=== PATIENT | male | born 1960 | race Caucasian/White ===

== ENCOUNTER 2021-05-04 19:45 | Observation (INO) | payer OTHER ==
[~2021-05-04] VITALS: Ht 188 cm; Wt 99.2 kg
[2021-05-04] MEDS ORDERED: OLMESARTAN MEDO20 MG PO (21:16)
[2021-05-04] MEDS ORDERED: OMEPRAZOLE20 MG PO (21:21)
--- NOTE | 2021-05-05 00:30 | NUR ---
PT HERE FROM ER, UP TO VOID 200mls, VITALS DONE AT THIS TIME, BEDSIDE TABLE SET UP, CALL LIGHT IN PLACE, NO FURTHER NEEDS AT THIS TIME
--- NOTE | 2021-05-05 01:22 | NUR ---
Patient in bed comfortable and ready for bed. Admit assessment completed. Patient denies pain at this time. Oriented to room and call light. Personal supplies and call light within reach.
--- NOTE | 2021-05-05 04:15 | NUR ---
Patient in bed sleeping, respirations even and non labored. No notable distress. Personal supplies and call light within reach.
--- NOTE | 2021-05-05 08:00 | NUR ---
RECEIVED REPORT AT 0700, PT WAS AWAKE IN BED. ONLY THING NOTED WITH MORNING ASSESSMENT WAS RUQ ABD PAIN. ASSESSMENT OTHERWISE WAS WDL. PT IS READY FOR OR AT 1000.
--- NOTE | 2021-05-05 10:30 | NUR ---
PT LEFT FOR OR AT 1030.
--- NOTE | 2021-05-05 10:52 | NUR ---
THIS MORNING BROUGHT PATIENT THE SURGICAL WIPE DOWN WIPES ALSO INSTRUCTIONS ON HOW TO DO IT. GOT HIM A CLEAN GOWN. PUT HIS SCDS BACK ON.
--- NOTE | 2021-05-05 14:17 | NUR ---
05/05/21 1417 Magdalena Lombardo 1412- PT ARRIVES TO PACU NONAROUSABLE TO NOXIOUS STIMULI WITH AN OPA IN PLACE. RESP EVEN AND UNLABORED. OXYGEN SAT HIGH 90'S ON 10L VIA MASK.
--- NOTE | 2021-05-05 16:00 | NUR ---
UPON ARRIVAL FROM PACU PT APPEARED TO HAVE TROUBLE WITH HIS AIRWAY EVEN THOUGH HIS O2 SATS WERE 95% ON 2L O2 NC. RR WERE AROUND 12, HR IN THE 50'S, OTHER V/S WERE WDL. PT IS VERY LETHARGIC SINCE ARRIVAL. 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 LAP SITES X5 HAVE SCAN AMOUNT OF SEROUS DRAINAGE PRESENT, STERI-STRIPS ARE INTACT. IVON-DRAIN SITE HAS A SMALL AMOUNT OF SEROUS SHADOWING PRESENT AROUND THE INSERTION SITE. IVON-DRAIN OUTPUT IS SEROUS IN NATURE AND MINIMAL SO FAR. LOBES ARE CLEAR WITH THE LOWER LOBES DIMINISHED, LUQ AND RUQ SOUNDS ARE ABSENT, OTHER QUADRANT SOUNDS ARE PRESENT, ABD IS FIRM, MODERATLY DISTENDED. SCLERA AND SKIN ARE JAUNDICE. WILL CONTINUE TO MONITOR.
--- NOTE | 2021-05-05 16:20 | NUR ---
Pt lives in [place] in a 1 story home without steps with his Shirley. Pt is tired following surgery and request I ask questions. Pt is slightly jaundiced. Per he is active and does not use any DME. He drives and they are financially sound. Uses [employer] [facility] [facility] in [place]. His Dr. Recently moved and he has not been reassigned. He sees whichever Dr. is available. denies needs for dc and plan on taking pt home, she will be off work for 3 days and will stay with him.
--- NOTE | 2021-05-05 16:38 | NUR ---
JOSELINE MELLO CAME BY TO EVALUATE PT AIRWAY. NOTHING INHIBITING PT AIRWAY WAS FOUND. PT AT THIS TIME IS MORE ALERT AND SITTING ON SIDE OF BED TRYING TO URINATE WITH HIS AT BEDSIDE.
--- NOTE | 2021-05-05 17:37 | NUR ---
PT NOW ON ROOM AIR, WILL CONTINUE TO MONITOR.
--- NOTE | 2021-05-05 18:38 | NUR ---
WHEN PT ARRIVED ON MS AT 1530 HE WAS VERY LETHARGIC AND APPEARED TO HAVE AN ISSUE WITH HIS AIRWAY. JOSELINE MELLO DID COME UP AND ASSESS HIS AIRWAY AND NOTHING COMPROMISING PT AIRWAY WAS FOUND. PT DID HAVE AN IRRITATED AND SWOLLEN UVULA. HR AT FIRST WAS IN THE 50'S, ALL OTHER V/S HAVE BEEN WDL. PT AT THIS TIME IS ON ROOM AIR AND ALL V/S ARE WDL, PT VOIDED 650MLS SO FAR, PT IS TOLERATING PO INTAKE WELL. IVON-DRAIN OUTPUT IS VERY MINIMAL SO FAR, LAP SITES X5 HAVE SCANT AMOUNTS OF SEROUS DRAINAGE PRESENT. PAIN NOW IS WELL CONTROLLED WITH PO PERCOCET. PT NOW IS ALSO ALERT AND ORIENTED.
--- NOTE | 2021-05-05 19:00 | NUR ---
SHIFT REPORT RECIEVED FROM [facility] TAWNY ORDONEZ AT BEDSIDE, pt AWAKE AND RESTING IN BED. [address] WITH STERI STRIPS, SCANT SEROSANGUINEOUS SHADOWING, WILL MONITOR. IVON DRAIN TO RIGHT LOWER QUADRANT, WILL MONITOR OUTPUT. CPOX IN PLACE, SPO2 AND HR WNL. pt ON RA, RR EVEN AND UNLABORED. NO DSITRESS NOTED. CALL LIGHT IN REACH.
--- NOTE | 2021-05-05 19:45 | NUR ---
IN TO CHECK CPOX, ALARMING 'SPD', AJDUSTED SETTING, NO FURTHER NEEDS AT THIS TIME
--- NOTE | 2021-05-05 20:59 | EKG ---
[facility] [address] [facility] [place], [place] [address] Signed Normal sinus rhythm Normal ECG No previous ECGs available Confirmed by JOSE KUO DO ([id number]) on 05/05/2021 8:59:54 PM Electronically Signed By: JOSE KUO DO 05/05/212058 PATIENT NAME: LOLI BELL Electrocardiogram DATE OF : 60 PHYSICIAN: JOSE KUO DO REPORT #: [id number] REPORT IS CONFIDENTIAL AND NOT TO BE RELEASED WITHOUT AUTHORIZATION
--- NOTE | 2021-05-05 21:45 | NUR ---
ASSESSMENT COMPLETE, SCHEDULED MEDS GIVEN (SEE EMAR). pt REPORTS TOLERABLE 4/10 PAIN, WILL MONITOR. pt CURRENTLY DENIES NEED FOR PAIN MEDS AT THIS TIME. IN ROOM. NO CHANGE TO LAP SITES X5 OR IVON DRAIN. DR VERNON UPDATED ON pt AMBULATING IN HALLWAY AND IVON OUTPUT THUS FAR THIS SHIFT. CLARIFIED WITH DR VERNON REGARDING 1600 CMP, PER DR VERNON OKAY TO DISCONTINUE AND NOT COLLECT. WILL REVIEW AM LABS. NO FURTHER NEEDS, CALL LIGHT IN REACH.
--- NOTE | 2021-05-06 00:06 | NUR ---
CALL LIGHT ANSWERED, pt REPORTS 7/10 ABD PAIN, SEE EMAR. PRN PAIN MEDICATION GIVEN, SEE EMAR. SNAKC ALSO PROVIDED, NO FURTHER NEEDS. CALL LIGHT IN REACH.
--- NOTE | 2021-05-06 01:55 | NUR ---
IN TO GET VITALS, ICE WATER REFILLED, NO FURTHER NEEDS
--- NOTE | 2021-05-06 02:31 | NUR ---
ASSESSMENT COMPLETE, NO NEW CHANGES OR CONCERNS. NEW BAG IV FLUIDS HUNG AND INFUSING PER MD ORDERS, IV SITE WNL. pt REPORTS TOLERABLE 3-4/10 PAIN, NO CHANGE TO LAP SITES OR IVON DRAIN. CALL LIGHT IN REACH, IN ROOM.
--- NOTE | 2021-05-06 02:35 | NUR ---
CPOX ALARMING, PT WAS MOVING FINGER, HR NOT DETECTED, RESOLVED ISSUE, NO FURTHER NEEDS
--- NOTE | 2021-05-06 03:25 | NUR ---
CPOX ALARMING, PT ATTEMPTING TO REST AND HR SLOWS, CAUSES CPOX TO ALARM , RN IS AWARE, NO FURTHER NEEDS
--- NOTE | 2021-05-06 05:54 | NUR ---
SCHEDULED IV ABX GIVEN, SEE EMAR. IV SITE WNL. PRN MOTRIN ALSO GIVEN FOR 6/10 PAIN. IN ROOM. CPOX IN PLACE, SPO2 ON RA, 97%, HR 55. NO FURTHER NEEDS, CALL LIGHT IN REACH.
--- NOTE | 2021-05-06 06:48 | NUR ---
DR VERNON CALLED AND PROVIDED WITH TELEPHONE UPDATE ON pt, MD UPDATED ON AM LAB RESULTS AND PIERCE HR THROUGHOUT THE NIGHT OF LOW 40'S WHEN SLEEPING. pt AWOKE TO VOICE AND IS FULLY A/OX4. AMBULATED THIS MORNING WITH . NO NEW ORDERS AT THIS TIME.
--- NOTE | 2021-05-06 09:10 | NUR ---
REPORT RECEIVED FROM NIGHT RN AND PT. CARE RESUMED. PT. IS ALERT AND ORIENTED. PRESENT. HE REPORTS 8/10 PAIN IN LOWER ABDOMEN THAT IS ACHING. ADMIN. PO PERCOCET. IVON DRAIN IS PATENT. TUBING STRIPPED AND EMPTIED. LAP STERI STRIPS INTACT WITH DRIED DRAINAGE. LUNGS CLEAR THROUGHOUT AND BOWEL TONES ACTIVE. PT. DENIES NAUSEA AND EATING WELL. LEFT RESTING WITH CALL LIGHT IN REACH.
[2021-05-06] MEDS ORDERED: ACETAMINOPHEN500 MG PO (10:01)
[2021-05-06] MEDS ORDERED: IBUPROFEN600 MG PO (10:01)
[2021-05-06] MEDS ORDERED: OXYCODON-ACETA1 EAC2 PO (10:01)
--- NOTE | 2021-05-06 10:35 | HP ---
[facility] [address] [place], [place] [address] Signed ADMISSION DATE: 05/04/2021 REASON FOR ADMISSION: Acute cholecystitis with sludge and elevated liver enzymes. HISTORY OF PRESENT ILLNESS: This 61-year-old white man, who has had recurrent bouts of right upper abdominal pain and epigastric pain. He went on a low-carbohydrate diet relatively recently losing approximately 17 pounds by intention. He has had a several years worth of episodic right upper abdominal and right subscapular pain, particularly following fatty food intake. The patient has been previously on a relatively high carbohydrate diet, drinking at least 17 regular Pepsi's a day. He transitioned to sweet tea and ultimately to simply to water. This facilitated as weight loss. Yesterday, he for the first time had some full fat yogurt, which caused recurrent symptoms of right subcostal and epigastric pain with radiation into the subscapular area. He has actually been having significant symptoms for the past two weeks. 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 He has multiple family members, who are involved in health care including medical assisting and so forth. He presented to the emergency room yesterday, was evaluated by Dr. Plascencia. Evaluation included lab studies, which showed markedly elevated liver enzymes including bilirubin that was 6.1, elevated alkaline phosphatase to 454, AST of 193, and ALT of 250. An ultrasound was performed, which did not show what appeared to be acute cholecystitis, particularly but did show sludge in the neck of the gallbladder. There was no sign of stone, no sign of intrahepatic ductal dilatation. I was called and reviewed the situation with Dr. Plascencia and recommended a CT scan to be obtained to assess for a neoplasm of the head of the pancreas, there is no such finding. The patient had marked tenderness and pain upon presentation, but since hospitalization late last night with IV antibiotics and IV fluids, his symptoms have much improved. PAST MEDICAL AND SURGICAL HISTORY: Does include left knee replacement, also history of left hydrocelectomy. The patient had a complex laceration of his right volar forearm resulting in what sounds like ulnar artery ligation and muscle wasting of his right hand, the patient is naturally left-hand dominant. The patient is not known to have had COVID disease (though he thinks he had it before Electronically Signed By: RIAZ VERNON MD 05/06/21 1035 PATIENT NAME: LOLI BELL HISTORY AND PHYSICAL DATE OF : 60 REPORT #: [id number] PHYSICIAN: RIAZ VERNON MD PCP: NO PRIMARY CARE PHYSICIAN REPORT IS CONFIDENTIAL AND NOT TO BE RELEASED WITHOUT AUTHORIZATION [facility] [address] [place], [place] [address] Signed anyone else). He has never been tested for. He refuses the vaccine. His lab studies show that he is COVID negative on admission. SOCIAL HISTORY: He is . Lives in [place], [place]. 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 He has grown children. REVIEW OF SYSTEMS: He denies any shortness of breath or chest pain. He has had no dysphagia or dysuria. Denies any hematemesis or blood per rectum. PHYSICAL EXAMINATION: GENERAL: Pleasant white man, who does not look to be in severe distress at this time. VITAL SIGNS: Temperature is 97.6, pulse is 60, blood pressure 115/67, and O2 saturation on room air is 97%. NECK: Shows no thyromegaly or cervical adenopathy. Trachea is midline. Mucous membranes are moist. CHEST: Clear. HEART: Regular without murmur. ABDOMEN: Nondistended. There is no ascites. He has only mild right subcostal tenderness. There is no mass. EXTREMITIES: Show no clubbing, cyanosis, or edema. LABORATORY DATA: Lab studies from admission at 2110 on 04 May, showed white count of 17.3, hematocrit 46.9, and platelets 340,000. Chem profile showed sodium of 131, potassium 4.9, creatinine 1.21, and glucose 112. Total bilirubin 6.1, AST 193, ALT 250, alkaline phosphatase 454, albumin 4.4, and lipase 62. Urinalysis essentially normal except for elevated nitrite and urobilinogen 4.0, white cells of 2.3 per high-power field. Serology for coronavirus is negative. I have reviewed his ultrasound and a CT scan. Findings were noted as above. ASSESSMENT AND PLAN: The patient has what appears to be a bout of recurrent biliary colic and essentially acute cholecystitis with persistent tenderness, elevated white count, and markedly elevated liver enzymes. I discussed the pathophysiology of biliary disease with him and I have recommended cholecystectomy by laparoscopic approach, possible or even probable laparoscopic common duct exploration. Discussed the particulars of all of this. He may require an open procedure. We discussed that as well. The risks of bleeding, infection, bile duct injury, need for open procedure, need for drains and possibly prolonged drainage was reviewed in detail. He understands and wished to proceed. Electronically Signed By: RIAZ VERNON MD 05/06/21 1035 PATIENT NAME: LOLI BELL HISTORY AND PHYSICAL DATE OF : 60 REPORT #: [id number] PHYSICIAN: RIAZ VERNON MD PCP: NO PRIMARY CARE PHYSICIAN REPORT IS CONFIDENTIAL AND NOT TO BE RELEASED WITHOUT AUTHORIZATION [facility] [address] [place], [place] [address] Signed We will plan to continue n.p.o. status, IV antibiotic Ancef and we will re-evaluate his liver enzymes for this morning. MD DOMINICK Zamora/MALISSAL /[id number] cc: Wes Plascencia MD Copies: WES PLASCENCIA MD ~ Electronically Signed By: RIAZ VERNON MD 05/06/21 1035 PATIENT NAME: LOLI BELL HISTORY AND PHYSICAL DATE OF : 60 REPORT #: [id number] PHYSICIAN: RIAZ VERNON MD PCP: NO PRIMARY CARE PHYSICIAN REPORT IS CONFIDENTIAL AND NOT TO BE RELEASED WITHOUT AUTHORIZATION
--- NOTE | 2021-05-06 10:35 | OR ---
[facility] [address] [place], [place] [address] Signed DATE OF OPERATION: 05/05/2021 SURGEON: Riaz Vernon MD PREOPERATIVE DIAGNOSES: Acute cholecystitis with sludge and elevated liver enzymes (bilirubin 6.6, AST 125, ALT 194, alkaline phosphatase 376). POSTOPERATIVE DIAGNOSES: Acute cholecystitis with distal common duct small stone debris with sludge. PROCEDURES: 1. Laparoscopic cholecystectomy with cholangiogram and laparoscopic common duct exploration (transcystic duct). Surgeon directed fluoroscopy. 2. Flexible choledochoscopy with clearance of common duct and completion of cholangiogram. ANESTHESIA: General endotracheal, Riaz Rolon CRNA and local 20 mL of 0.25% Marcaine with epinephrine. INDICATION: This 61-year-old white man has had recurrent bouts of right upper abdominal pain for several years actually. He has had intentional weight loss over the past several weeks with low-carbohydrate type diet. He had yogurt yesterday and had recurrence of his symptoms which have been typical of his situation for over a year, including epigastric and right subcostal pain with pain radiating to the subscapular area. He presented to the emergency room where he was evaluated by Dr. Plascencia by ultrasound, which showed significant sludge in the gallbladder. No sign of common duct dilation, but lab studies showing markedly elevated liver enzymes. His initial presentation lab showed a total bilirubin of 6.1, AST 193, ALT 215, alkaline phosphatase 454. Notably, lipase was normal. Followup labs showed the bilirubin slightly elevated more today at 6.6, but other liver enzymes decreased including AST 125, ALT 194, and alkaline phosphatase 376. He did have a CT scan following his ultrasound at my recommendation to assess there was no neoplasm of the head of the pancreas. He is admitted at this time to undergo laparoscopic cholecystectomy, possible common duct exploration. He and his understand the risks of bleeding, infection, bile duct injury, need for open procedure and other unforeseen complications and wished to proceed. Electronically Signed By: RIAZ VERNON MD 05/06/21 1035 PATIENT NAME: LOLI BELL OPERATIVE REPORT DATE OF : 60 REPORT #: [id number] PHYSICIAN: RIAZ VERNON MD PCP: NO PRIMARY CARE PHYSICIAN REPORT IS CONFIDENTIAL AND NOT TO BE RELEASED WITHOUT AUTHORIZATION [facility] [address] [place], [place] [address] Signed FINDINGS: The gallbladder was quite markedly inflamed and dense omental adhesions were noted to the undersurface. The gallbladder did require decompression due to its markedly enlarged size. Green debris bile was noted on suctioning. Ultimately, cholangiogram showed a relatively large filling defect in the distal common duct. Laparoscopic common bile duct exploration was undertaken 1st transcystic approach, ultimately clearing the duct on final completion cholangiogram. DESCRIPTION OF PROCEDURE: The patient was brought to the operating room, and given a general endotracheal anesthetic. Ancef antibiotic had been administered. Sequential compression device stockings were used. The abdomen is prepared with chlorhexidine solution after intubation and satisfactory general endotracheal anesthesia. An infraumbilical incision was made and using an open Angeles cannula technique pneumoperitoneum achieved to a level of 14 mmHg of carbon dioxide gas. Intraabdominal inspection showed no sign of ascites or carcinomatosis. The liver appeared normal. The gallbladder was completely obscured from view. Marked inflammatory changes in the omentum over the right lobe of the liver were noted. Three additional trocars were placed in usual configuration in the subxiphoid, right midclavicular, and right anterior axillary line. With two-hand dissection, the omentum was freed from the underlying gallbladder which was found to be markedly distended and inflamed. Meticulous dissection to free the omentum from the undersurface of the gallbladder went without problem. The gallbladder was so tensely distended and so forth that decompression was required. Using a laparoscopic needle trocar device, the gallbladder was decompressed. The puncture site was secured with a laparoscopic grasper allowing for elevation of the gallbladder cephalad. Using blunt dissection, the infundibulum was better identified. An additional 5 mm trocar was placed in the mid abdomen allowing for a fan retractor to retract the duodenum and omentum medially. Using an additional grasper, the infundibulum was grasped and retracted laterally and using blunt electrocautery dissection triangle of Calot was dissected free. The critical view of safety was noted identifying well the cystic duct. Clips were applied to the cystic arterial branches as necessary. Once the cystic duct was fully cleared, a clip was applied across the gallbladder cystic duct junction. A transverse choledochotomy was made in the cystic duct showing rather thick turbid bile. Using the Tomas-type cholangiocatheter, intraoperative cholangiography was undertaken. Free flow of contrast was noted into the biliary tree. The relatively longer cystic duct was noted. In the distal common duct was a relatively large appearing filling defect. It was not entirely clear initially if this could be even cleared by a transcystic duct approach given its size. Mindful of the possibility that the offending lesion may have been soft, given no clear evidence of stones on preoperative imaging. Proceeding with laparoscopic common duct exploration was deemed advisable. An epigastric trocar was placed in alignment with the cystic duct. The flexible tipped Electronically Signed By: RIAZ VERNON MD 05/06/21 1035 PATIENT NAME: LOLI BELL OPERATIVE REPORT DATE OF : 60 REPORT #: [id number] PHYSICIAN: RIAZ VERNON MD PCP: NO PRIMARY CARE PHYSICIAN REPORT IS CONFIDENTIAL AND NOT TO BE RELEASED WITHOUT AUTHORIZATION [facility] [address] [place], [place] [address] Signed wire was passed through the trocar into the cystic duct choledochotomy and under fluoroscopic control, the wire advanced into the duodenum. It was withdrawn a bit aligning it well. An ERCP balloon catheter was then passed over the wire with alignment of the radiopaque markers over the ampulla. The ampulla was dilated in the usual way under fluoroscopic control and deflated and withdrawn to the cystic duct, which was sequentially dilated as well. The flushed port of the catheter was then armed with contrast and irrigation undertaken vigorously and then cholangiography again performed. This showed haziness in the mid common bile duct, unclear if the duct had been completely cleared or not. The initial defect appeared to be absent, however. A flexible choledochoscope (actually a ureteronephroscope) was passed with extreme care down the accessory trocar site aligned with the cystic duct and past on the cystic duct and the common bile duct. Good visualization was noted. There was mucoid debris, but no sign of large stone per se. Various manipulations were undertaken allowing the choledochoscope to pass as far as possible. It did not pass into the duodenum proper however. A spiral stone basket wire snare was passed down the operating channel of the choledochoscope and passed across what clearly would be the ampulla. The basket was opened blindly, carefully withdrawn and gently closed and withdrawn, some mucoid debris to be removed. The choledochoscope was carefully withdrawn and there were no sign of other filling defect. Additional application of the scope to the common duct was undertaken showing no evidence of retained stone. Using the Tomas-type cholangiocatheter, completion cholangiography was undertaken showing free flow of contrast in the biliary tree with emptying into the duodenum and without impediment of flow or filling defect. The common duct was considered clear at this point. Catheter was removed and the cystic duct was triply clipped and divided, the gallbladder dissected free in a retrograde fashion using electrocautery. The gallbladder was placed in an endobag and extracted through the infraumbilical port site without problem, opened on the back table and found to have very foul-smelling mucoid material with multiple small gallstones that were dark. There was no sign of neoplasm. Irrigation was undertaken in the subhepatic space. A 7 mm flat Samy drain was placed in the subhepatic space and exited through right-sided trocar site. It was secured the skin with nylon suture. A Jimena-Martin device was used to approximate the fascial epigastric port as it had been enlarged initially and did have some oozing of blood at the outset of operation. Good hemostasis was noted. The additional trocars were removed and the infraumbilical fascial incision reapproximated with interrupted 0 Vicryl suture with an additional running 0 PDS suture. A 20 mL of 0.25% Marcaine with epinephrine was injected locally. The skin was then closed with interrupted 3-0 Vicryl and Steri-Strips were applied. The Electronically Signed By: IRAZ VERNON MD 05/06/21 1035 PATIENT NAME: LOLI BELL OPERATIVE REPORT DATE OF : 60 REPORT #: [id number] PHYSICIAN: RIAZ VERNON MD PCP: NO PRIMARY CARE PHYSICIAN REPORT IS CONFIDENTIAL AND NOT TO BE RELEASED WITHOUT AUTHORIZATION [address] [address] Signed patient was ultimately extubated and transferred to the recovery room in good condition having suffered no complications. Sponge, needle, and counts reported were reported as correct x3. Operation was prolonged, complicated and difficult and accomplished safely. MD DOMINICK Zamora/HELENA /[id number] cc: Wes Plascencia MD Copies: WES PLASCENCIA MD ~ Electronically Signed By: RIAZ VERNON MD 05/06/21 1035 PATIENT NAME: RAYLOLI OPERATIVE REPORT DATE OF : 60 REPORT #: [id number] PHYSICIAN: RIAZ VERNON MD PCP: NO PRIMARY CARE PHYSICIAN REPORT IS CONFIDENTIAL AND NOT TO BE RELEASED WITHOUT AUTHORIZATION
--- NOTE | 2021-05-06 12:00 | NUR ---
ALL DISCHARGE INSTRUCTIONS REVIEWED AND QUESTIONS ANSWERED. PT. DENIES PAIN AND VITALS STABLE. IV REMOVED WITH CATH INTACT. PT. 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
--- NOTE | 2021-05-06 16:00 | PATH ---
[facility] [address] [place], [place] [address] Signed SPECIMEN(S): A GALLBLADDER AND STONES SPECIMEN SOURCE: A. GALLBLADDER AND STONES CLINICAL HISTORY: Acute cholecystitis and cholelithiasis. FINAL PATHOLOGIC DIAGNOSIS: Gallbladder, cholecystectomy: - Acute on chronic cholecystitis. - Cholelithiasis. NAL:bg:C2NR MICROSCOPIC EXAMINATION: Histologic sections of all submitted blocks are examined by light microscopy. These findings, together with the gross examination, support the pathologic diagnosis. GROSS DESCRIPTION: The specimen, labeled "DP, A," and designated on the requisition "gallbladder and stones," is received in formalin and consists of Specimen: Previously opened gallbladder. Dimensions: 8.0 x 4.0 x 1.3 cm. Serosa: [place] and smooth. Cystic Duct: unobstructed. Calculi: Multiple black-brown calculi (0.1-0.4 cm in greatest dimension, and 2.0 x 1.0 x 0.5 cm in aggregate). Mucosa: [place] and velvety. Wall thickness: 0.7 cm. Lymph node: No pericystic lymph nodes are grossly identified. Additional: None. Card Hanger sections are submitted in cassette (A1). AC (under the direct supervision of a pathologist) The Gross Description was prepared using a voice recognition system. The report was reviewed for accuracy; however, sound-alike word errors, addition and/or deletions may occur. If there is any question about this report, please contact Client Services. PERFORMING LABORATORY: [facility] PATIENT NAME: LOLI BELL PATHOLOGY DATE OF : 60 REPORT #: [id number] PHYSICIAN: JENYTE PATHOLOGY PCP: NO PRIMARY CARE PHYSICIAN REPORT IS CONFIDENTIAL AND NOT TO BE RELEASED WITHOUT AUTHORIZATION [facility] [address] [facility] [place], [place] [address] Signed [facility] [address] [place], [place] [address] (CLIA# [id number]). Diagnostician: Yesy Esquivel MD Pathologist Electronically Signed 05/06/2021 Copies: ~ PATIENT NAME: LOLI BELL PATHOLOGY DATE OF : 60 REPORT #: [id number] PHYSICIAN: JENYTE PATHOLOGY PCP: NO PRIMARY CARE PHYSICIAN REPORT IS CONFIDENTIAL AND NOT TO BE RELEASED WITHOUT AUTHORIZATION
--- NOTE | 2021-05-07 11:43 | DS ---
[facility] [place] [facility] [address] [place], [place] [address] Signed ADMISSION DATE: 05/04/2021 DISCHARGE DATE: 05/06/2021 REASON FOR ADMISSION: This 61-year-old white man has no primary provider, but presented to the emergency room with severe bouts of recurrent epigastric and right subcostal pain. He has had a 17-pound weight loss by intention on a low-carbohydrate diet. He has had several years of episodic symptoms highly suggestive of biliary disease. He was evaluated in the emergency room in [place], though he lives in [place], [place] and was seen by Dr. Plascencia with findings highly suggestive of acute cholecystitis. Notably lab studies were obtained, which showed an elevated white count and elevated liver enzymes including alkaline phosphatase of 454, AST of 193, ALT of 250, and bilirubin of 6.1. An ultrasound was performed, which showed a considerable amount of sludge in the neck of the gallbladder, the common bile duct was not dilated. I was consulted in the late night about this and recommend a CT scan in addition will be performed to assess for neoplasm of the pancreatic head. The CT performed showed no such finding. He was admitted for further evaluation and care for acute cholecystitis, possible common duct obstruction. His past medical history does include left knee replacement and history of left hydrocelectomy. He has had history of complex right volar forearm laceration. The patient has not undergone COVID vaccination. PERTINENT PHYSICAL EXAM: GENERAL: Pleasant white man, who does not look systemically toxic. HEENT: He has mild icterus. Trachea is midline. He has some post herpetic scabs in the right lower lip area... no obvious vescicles. CHEST: Clear. HEART: Regular without murmur. ABDOMEN: Nondistended. He had tenderness in right subcostal area. There is no mass. He had no ascites. There is a right lower abdominal scar EXTREMITIES: Show no clubbing, cyanosis, or edema. LAB STUDIES: Are as previously noted. Additionally, lipase was noted to be 62 (normal), white count was 17.3, hematocrit 46.9, and platelets 340,000. HOSPITAL COURSE: The patient was admitted under my direction and started on Ancef antibiotic IV fluids and made to be n.p.o. His clinical examination within 12 hours showed improvement in his complaints of pain, but persistent tenderness in right subcostal area. On May 05, 2021, he underwent laparoscopic cholecystectomy as well as cholangiogram. Electronically Signed By: RIAZ VERNON MD 05/07/21 1143 PATIENT NAME: LOLI BELL DISCHARGE SUMMARY DATE OF : 60 REPORT #: [id number] PHYSICIAN: RIAZ VERNON MD PCP: NO PRIMARY CARE PHYSICIAN REPORT IS CONFIDENTIAL AND NOT TO BE RELEASED WITHOUT AUTHORIZATION [facility] [address] [place] [id number] Signed Cholangiogram showed a distinct filling defect in the distal common bile duct. On that basis, laparoscopic common duct exploration was undertaken including flexible choledochoscopy. Most of the material within the biliary tree had been flushed through with antegrade flushing following dilation of the ampulla and biliary tree. Endoscopic evaluation showed no large stone, only bits of debris and mucoid material. The gallbladder itself showed marked inflammation particularly foul smelling bile and sludge and small stones. A drain was placed at time of operation. By the following day, he was markedly improved. His liver enzymes were improved by twice including a bilirubin down from 6.6 at its maximum to 3.6 today following operation. AST was 60 down from 125, ALT 126 down from 194, alkaline phosphatase down from 376 to 319. He had clinical resolution of his symptoms entirely and clinical icterus was improved as well. Drain showed no sign of bile leak and was removed. The patient is discharged home anticipating avoidance of lifting more than 20 pounds for the next two weeks. DISCHARGE MEDICATIONS: Include: 1. Ibuprofen 600 mg p.o. q.6 hours as needed for pain #30. 2. Percocet 7.5/325 1-2 p.o. q.6 hours as needed for pain #6. 3. Tylenol 500 mg two tablets p.o. q.6 hours as needed for pain #60. He will continue with his usual medications these include olmesartan medoxomil 20 mg b.i.d. and omeprazole 20 mg p.o. daily. FOLLOWUP PLANS: He will call on Sunday to organize an appointment for four weeks from now. If he is doing well and feels that his lengthy trip would be too onerous then phone followup will be reasonable. It is recalled that he [place] 65 miles away. DISCHARGE DIAGNOSES: 1. Acute calculus cholecystitis with choledocholithiasis with obstruction. 2. Status post laparoscopic cholecystectomy with laparoscopic common duct exploration and clearance of duct including a flexible choledochoscopy on May 05, 2021. 3. History of right volar arm injury. 4. Clinical gastroesophageal reflux. 5. Hypertension. 6. History of left hydrocele repair. 7. right lower abdominal scar Electronically Signed By: RIAZ VERNON MD 05/07/21 1143 PATIENT NAME: LOLI BELL DISCHARGE SUMMARY DATE OF : 60 REPORT #: [id number] PHYSICIAN: RIAZ VERNON MD PCP: NO PRIMARY CARE PHYSICIAN REPORT IS CONFIDENTIAL AND NOT TO BE RELEASED WITHOUT AUTHORIZATION [address] [place], [place] [address] Signed MD DOMINICK Zamora/HELENA /[id number] cc: Wes Plascencia MD Copies: WES PLASCENCIA MD ~ Electronically Signed By: RIAZ VRENON MD 05/07/21 1143 PATIENT NAME: LOLI BELL DISCHARGE SUMMARY DATE OF : 60 REPORT #: [id number] PHYSICIAN: RIAZ VERNON MD PCP: NO PRIMARY CARE PHYSICIAN REPORT IS CONFIDENTIAL AND NOT TO BE RELEASED WITHOUT AUTHORIZATION
== END 2021-05-06 11:56 | disposition home or self-care (01) ==
LOC: ED 19:45 → MS 19:46
PROVIDERS: ADMIT Surgery; ATTEND Surgery
PROC: 0FC94ZZ Extirpation of Matter from Common Bile Duct, Percutaneous Endoscopic Approach (ICD-10-PCS; 2021-05-05)
PROC: 0FJB4ZZ Inspection of Hepatobiliary Duct, Percutaneous Endoscopic Approach (ICD-10-PCS; 2021-05-05)
PROC: 0FT44ZZ Resection of Gallbladder, Percutaneous Endoscopic Approach (ICD-10-PCS; principal; 2021-05-05 11:30)
PROC: 0FJB4ZZ Inspection of Hepatobiliary Duct, Percutaneous Endoscopic Approach (ICD-10-PCS; 2021-05-05 11:30)
DX: K80.63 Calculus of gallbladder and bile duct with acute cholecystitis with obstruction (principal); K82.8 Other specified diseases of gallbladder; K21.9 Gastro-esophageal reflux disease without esophagitis; I10 Essential (primary) hypertension; R74.01 Elevation of levels of liver transaminase levels; Z96.652 Presence of left artificial knee joint; Z20.822 Contact with and (suspected) exposure to COVID-19
CPT/HCPCS: 00790; 74177; 74300; 76705; 80053; 81001; 83690; 83735; 85025; 93005; 93010; 96372; 96375; 96376; 99285-25; A9270; C1726; C1769; C1894; C9803; G0378; J0131; J0330; J0690; J1100; J1644; J1885; J2250; J2405; J2704; J2765; J3010; J7030; J7121; Q9967; U0003